=== PATIENT | female | born 1950 | race Two or more races ===

== ENCOUNTER 2017-08-22 04:27 | Inpatient (IN) | payer MEDICARE, MEDICAID ==
[~2017-08-22] VITALS: Ht 162.6 cm; Wt 67.0 kg
[2017-08-22] MEDS ORDERED: methylPREDNISolone SOD SUCC 125 MG/2 ML VL ONE (04:33)
[2017-08-22] MEDS ORDERED: MORPHINE SULFATE 4 MG/ML SYR/VIAL IV ONE ×3 (05:15→12:15)
[2017-08-22] MEDS ORDERED: ONDANSETRON HCL 4 MG/2 ML VIAL IV ONE ×2 (05:15→08:00)
[2017-08-22 05:46] LABS: Basophils # (auto) 0 uL; Basophils % (auto) 0.1 % (0.0-2.0); Eosinophils # (auto) 0 uL; Hematocrit 48.3 % (36.0-46.0); Lymphocytes # (auto) 0.6 uL; Lymphocytes % (auto) 4.2 % (10.0-50.0); Mean Corpuscular Hgb Conc. 33.1 g/dL (32.0-36.0); Mean Corpuscular Volume 87.7 fL (80.0-100.0); Monocytes # (auto) 0.7 uL; Monocytes % (auto) 4.6 % (0.0-12.0); Neutrophils % (auto) 91.1 % (37.0-80.0); Platelet Count (auto) 323 10^3/uL (140-450); Red Blood Cells 5.51 10^6/uL (4.0-5.20); Red Cell Distribution Width 13.7 % (11.8-14.3); White Blood Cell 15.3 10^3/uL (4.4-10.8)
[2017-08-22 06:00] LABS: INR 0.95 (0.9-1.15); Partial Thromboplastin Time 22.9 sec (22.64-33.71); Prothrombin Time 10.4 sec (9.37-12.3)
[2017-08-22 06:20] LABS: Alanine Aminotransferase 15 U/L (13-56); Albumin 4.6 g/dL (3.4-5.0); Alkaline Phosphatase 98 U/L (45-117); Anion Gap 15 (5-15); Aspartate Aminotransferase 20 U/L (15-37); Bilirubin, Total 1.1 mg/dL (0.2-1.0); Blood Urea Nitrogen 8 mg/dL (7-18); Carbon Dioxide 28 mmol/L (21-32); Chloride 91 mmol/L (98-107); GFR African American 92 mL/min; GFR Non-African American 76 mL/min; Glucose 318 mg/dL (74-106); Magnesium 2.4 mg/dL (1.6-2.6); Potassium 3.2 mmol/L (3.5-5.1); Sodium 134 mmol/L (136-145); Total Protein 9.5 g/dL (6.4-8.2)
[2017-08-22] MEDS ORDERED: POTASSIUM CHL 10% (20 MEQ/15ML) 15ml ORAL SOLN PO ONE (07:00)
[2017-08-22 07:45] LABS: Urine Amorphous Crystal FEW /hpf (None Seen); Urine Bacteria NONE SEEN /hpf (None Seen); Urine Blood Negative /uL (Negative); Urine Specific Gravity 1.022 (1.001-1.035); Urine WBC 3 /hpf (0 - 5)
[2017-08-22] MEDS ORDERED: POTASSIUM CHL 20MEQ/100ML 100 ML IV ONE (08:00)
[2017-08-22] MEDS ORDERED: SODIUM CHLORIDE 0.9% 1,000 ML IV ONE (08:00)
[2017-08-22] MEDS ORDERED: MORPHINE SULFATE 10 MG/ML INJ 1ML SDV IV ONE (12:00)
[2017-08-22] MEDS ORDERED: PIPERACILLIN-TAZOB 3.375GM 50 ML IV ONE (12:00)
[2017-08-22] MEDS ORDERED: NITROGLYCERIN 0.4 MG SL TAB SL PRN (13:15)
[2017-08-22] MEDS ORDERED: ACETAMINOPHEN 500 MG TAB PO PRN (13:15)
[2017-08-22] MEDS ORDERED: TEMAZEPAM 15 MG CAP PO PRN (13:15)
[2017-08-22] MEDS ORDERED: DEXTROSE (50%) 50ML SYRG IV PRN ×2 (13:15→16:15)
[2017-08-22] MEDS ORDERED: ALBUTEROL SULF 2.5 MG/0.5ML(0.5%) NEB SOLN NEB PRN (13:15)
[2017-08-22] MEDS ORDERED: MORPHINE SULFATE 4 MG/ML SYR/VIAL IV PRN (13:15)
[2017-08-22] MEDS ORDERED: LORazepam 0.5 MG TAB PO PRN (13:15)
[2017-08-22] MEDS ORDERED: HYDROcodone-ACET 5/325MG TAB PO PRN (13:15)
[2017-08-22] MEDS: SODIUM CHLORIDE 0.9% 1,000 ML IV SCH (13:35)
[2017-08-22] MEDS ORDERED: cefTRIAXone 1GM/10ml IVPUSH 10 ML IV ONE (13:45)
[2017-08-22] MEDS ORDERED: ENOXAPARIN SOD 40 MG/0.4 ML SYRINGE SC ONE (13:45)
[2017-08-22] MEDS ORDERED: AZITHROMYCIN 500MG/ 250ML 250 ML IV ONE (13:45)
[2017-08-22] MEDS: PROMETHAZINE HCL 25 MG/ML 1ML IV PRN ×2 (13:54→20:10)
[2017-08-22 17:00] VITALS: BP 95/58
[2017-08-22] MEDS: InsuLIN REG 1unit/0.01ml Soln (100units/ml) SC SCH ×2 (17:00→23:16)
[2017-08-22] MEDS ORDERED: InsuLIN REG 1unit/0.01ml Soln (100units/ml) SC SCH (17:00)
[2017-08-22] MEDS ORDERED: ACCU-CHEK COMFORT CURVE STRIP VI SCH (17:00)
[2017-08-22] MEDS: ACCU-CHEK COMFORT CURVE STRIP VI SCH ×2 (17:00→22:19)
[2017-08-22] MEDS: ALBUTEROL SULF 2.5 MG/0.5ML(0.5%) NEB SOLN NEB SCH (19:30)
[2017-08-22 22:00] VITALS: BP 90/65
[2017-08-22 23:54] VITALS: BP 90/65
[2017-08-23] MEDS: ALBUTEROL SULF 2.5 MG/0.5ML(0.5%) NEB SOLN NEB SCH ×4 (00:39→17:55)
[2017-08-23] MEDS: SODIUM CHLORIDE 0.9% 1,000 ML IV SCH ×2 (03:40→16:40)
[2017-08-23 05:00] VITALS: BP 99/56
[2017-08-23] MEDS: ACCU-CHEK COMFORT CURVE STRIP VI SCH ×4 (06:26→22:10)
[2017-08-23] MEDS: InsuLIN REG 1unit/0.01ml Soln (100units/ml) SC SCH ×4 (06:26→22:00)
[2017-08-23] MEDS ORDERED: METF-370 PO (06:27)
[2017-08-23 07:20] LABS: Albumin 2.9 g/dL (3.4-5.0); BUN/Creatinine Ratio 32.7; Bilirubin, Total 0.7 mg/dL (0.2-1.0); Calcium 7.6 mg/dL (8.5-10.1); Potassium 3.2 mmol/L (3.5-5.1); Total Protein 6.1 g/dL (6.4-8.2)
[2017-08-23 07:28] LABS: Basophils # (auto) 0 uL; Basophils % (auto) 0.2 % (0.0-2.0); Eosinophils # (auto) 0.1 uL; Eosinophils % (auto) 0.4 % (0.0-7.0); Hematocrit 33.8 % (36.0-46.0); Hemoglobin 11.2 g/dL (12.2-16.2); Lymphocytes # (auto) 2.5 uL; Lymphocytes % (auto) 18.5 % (10.0-50.0); Mean Corpuscular Hemoglobin 29.5 pg (28.0-32.0); Mean Corpuscular Volume 89.5 fL (80.0-100.0); Monocytes # (auto) 1.1 uL; Monocytes % (auto) 8.3 % (0.0-12.0); Neutrophils # (auto) 9.9 uL; Neutrophils % (auto) 72.6 % (37.0-80.0); Platelet Count (auto) 254 10^3/uL (140-450); Red Blood Cells 3.78 10^6/uL (4.0-5.20); Red Cell Distribution Width 13.6 % (11.8-14.3); White Blood Cell 13.6 10^3/uL (4.4-10.8)
[2017-08-23] MEDS: LACTULOSE 20Gm/30ML SOLN PO PRN (08:05)
[2017-08-23] MEDS: cefTRIAXone 1GM/10ml IVPUSH 10 ML IV SCH (08:21)
[2017-08-23] MEDS: MORPHINE SULFATE 4 MG/ML SYR/VIAL IV PRN ×2 (08:22→17:30)
[2017-08-23 09:00] VITALS: BP 86/56
[2017-08-23] MEDS: AZITHROMYCIN 500MG/ 250ML 250 ML IV SCH (09:31)
[2017-08-23] MEDS: ENOXAPARIN SOD 40 MG/0.4 ML SYRINGE SC SCH (09:31)
[2017-08-23] MEDS ORDERED: POTASSIUM CHL 20 Meq TABLET PO ONE (12:00)
[2017-08-23 13:00] VITALS: BP 103/64
[2017-08-23] MEDS ORDERED: POTASSIUM CHL 10% (20 MEQ/15ML) 15ml ORAL SOLN PO ONE (13:00)
[2017-08-23 17:00] VITALS: BP 114/76
[2017-08-23] MEDS ORDERED: OXYCODONE W/ ACETAMINOPHEN 5/325MG TABLET PO PRN (17:30)
[2017-08-23 22:00] VITALS: BP 123/82
[2017-08-24] MEDS: ALBUTEROL SULF 2.5 MG/0.5ML(0.5%) NEB SOLN NEB SCH ×3 (00:10→11:38)
[2017-08-24 05:00] VITALS: BP 114/52
[2017-08-24] MEDS: SODIUM CHLORIDE 0.9% 1,000 ML IV SCH (05:13)
[2017-08-24] MEDS: ACCU-CHEK COMFORT CURVE STRIP VI SCH ×2 (06:15→11:29)
[2017-08-24] MEDS: InsuLIN REG 1unit/0.01ml Soln (100units/ml) SC SCH ×3 (06:29→12:15)
[2017-08-24] MEDS: cefTRIAXone 1GM/10ml IVPUSH 10 ML IV SCH (08:44)
[2017-08-24 09:00] VITALS: BP 99/60
[2017-08-24] MEDS: AZITHROMYCIN 500MG/ 250ML 250 ML IV SCH (09:22)
[2017-08-24] MEDS: LACTULOSE 20Gm/30ML SOLN PO PRN (09:22)
[2017-08-24] MEDS: ENOXAPARIN SOD 40 MG/0.4 ML SYRINGE SC SCH (09:22)
[2017-08-24 12:45] VITALS: BP 99/60
[2017-08-24 13:00] VITALS: BP 129/72
== END 2017-08-24 16:30 | disposition home or self-care (01) | DRG 871 ==
LOC: EDBD 04:27 → ER 04:31 → TELE 04:32 → TELE-WESTW 15:25
PROVIDERS: ADMIT Internal Medicine; ATTEND Family Medicine
DX: A41.9 Sepsis, unspecified organism (principal); J18.9 Pneumonia, unspecified organism; E46 Unspecified protein-calorie malnutrition; C78.00 Secondary malignant neoplasm of unspecified lung; J44.0 Chronic obstructive pulmonary disease with (acute) lower respiratory infection; E11.65 Type 2 diabetes mellitus with hyperglycemia; E87.6 Hypokalemia; I70.0 Atherosclerosis of aorta; K57.30 Diverticulosis of large intestine without perforation or abscess without bleeding; K59.00 Constipation, unspecified; Z83.3 Family history of diabetes mellitus; Z85.3 Personal history of malignant neoplasm of breast; Z68.25 Body mass index [BMI] 25.0-25.9, adult
CPT/HCPCS: 36415; 71045; 71250; 74176; 80053; 81001; 82962; 83036; 83735; 84484; 85025; 85610; 85730; 87040; 87077; 87081; 87186; 87205; 87804; 93005; 94640; 96361; 96365; 96375; 96376; J1815; J2405; J2543; J3480

== ENCOUNTER 2018-03-26 13:58 | Inpatient (IN) | payer MEDICARE, MEDICAID ==
[~2018-03-26] VITALS: Ht 162.6 cm; Wt 48.6 kg
[~2018-03-26 13:58] MED LIST: METF-370 PO
[2018-03-26 14:50] LABS: Basophils # (auto) 0.1 uL; Basophils % (auto) 0.5 % (0.0-2.0); Eosinophils # (auto) 0 uL; Hemoglobin 13.7 g/dL (12.2-16.2); Lymphocytes # (auto) 0.9 uL; Lymphocytes % (auto) 7.6 % (10.0-50.0); Mean Corpuscular Hemoglobin 28.7 pg (28.0-32.0); Mean Corpuscular Hgb Conc. 33.3 g/dL (32.0-36.0); Monocytes # (auto) 0.3 uL; Monocytes % (auto) 2.2 % (0.0-12.0); Neutrophils # (auto) 10.2 uL; Neutrophils % (auto) 89.7 % (37.0-80.0); Platelet Count (auto) 369 10^3/uL (140-450); Red Blood Cells 4.76 10^6/uL (4.0-5.20); Red Cell Distribution Width 13.3 % (11.8-14.3); White Blood Cell 11.4 10^3/uL (4.4-10.8)
[2018-03-26 15:11] LABS: Albumin 3.9 g/dL (3.4-5.0); BUN/Creatinine Ratio 7.5; Calcium 8.4 mg/dL (8.5-10.1); Potassium 3.4 mmol/L (3.5-5.1)
[2018-03-26 15:14] LABS: Bilirubin, Total 0.5 mg/dL (0.2-1.0); Total Protein 8.5 g/dL (6.4-8.2)
[2018-03-26 15:18] LABS: INR 0.94 (0.9-1.15); Partial Thromboplastin Time 24.5 sec (23.78-33.04); Prothrombin Time 10.1 sec (9.27-12.13)
[2018-03-26] MEDS ORDERED: NITROGLYCERIN 0.4 MG SL TAB SL PRN (16:15)
[2018-03-26] MEDS ORDERED: ACETAMINOPHEN 500 MG TAB PO PRN (16:15)
[2018-03-26] MEDS ORDERED: LORazepam 0.5 MG TAB PO PRN (16:15)
[2018-03-26] MEDS ORDERED: PANTOPRAZOLE 40 MG/10 ML VIAL IV ONE (16:15)
[2018-03-26] MEDS ORDERED: TEMAZEPAM 15 MG CAP PO PRN (16:15)
[2018-03-26] MEDS ORDERED: MORPHINE SULFATE 4 MG/ML SYR/VIAL IV ONE (16:15)
[2018-03-26] MEDS ORDERED: ONDANSETRON HCL 4 MG/2 ML VIAL IV ONE (16:15)
[2018-03-26] MEDS ORDERED: MORPHINE SULFATE 4 MG/ML SYR/VIAL IV PRN (16:15)
[2018-03-26] MEDS ORDERED: DEXTROSE (50%) 50ML SYRG IV PRN (16:15)
[2018-03-26] MEDS ORDERED: cefTRIAXone 1GM/50ML D5W 50 ML IV ONE (16:15)
[2018-03-26] MEDS ORDERED: HYDROmorphone HCL 2 MG/ML VL IV ONE (16:45)
[2018-03-26 16:49] LABS: Amylase 65 U/L (25-115); Lipase 120 U/L (73-393)
[2018-03-26] MEDS: SOD CHL 0.9%/ KCL 20MEQ 1,000 ML IV SCH (17:10)
[2018-03-26] MEDS: InsuLIN REG 1unit/0.01ml Soln (100units/ml) SC SCH ×2 (17:31→21:32)
[2018-03-26] MEDS: ACCU-CHEK COMFORT CURVE STRIP VI SCH ×2 (17:32→21:25)
[2018-03-26] MEDS: ONDANSETRON HCL 4 MG/2 ML VIAL IV PRN (19:48)
[2018-03-26] MEDS: MORPHINE SULFATE 4 MG/ML SYR/VIAL IV PRN (19:48)
[2018-03-26 20:15] VITALS: BP 164/93
[2018-03-26] MEDS: HYDROcodone-ACET 5/325MG TAB PO PRN (21:08)
[2018-03-26 22:00] VITALS: BP 164/93
[2018-03-27] MEDS: ONDANSETRON HCL 4 MG/2 ML VIAL IV PRN ×3 (00:39→17:51)
[2018-03-27] MEDS: MORPHINE SULFATE 4 MG/ML SYR/VIAL IV PRN ×3 (00:40→17:51)
[2018-03-27] MEDS: SOD CHL 0.9%/ KCL 20MEQ 1,000 ML IV SCH ×2 (02:15→12:15)
[2018-03-27 05:00] VITALS: BP 162/90
[2018-03-27] MEDS: ACCU-CHEK COMFORT CURVE STRIP VI SCH ×4 (06:40→22:46)
[2018-03-27] MEDS: InsuLIN REG 1unit/0.01ml Soln (100units/ml) SC SCH ×4 (06:47→22:56)
[2018-03-27 06:50] LABS: Basophils # (auto) 0 uL; Basophils % (auto) 0.1 % (0.0-2.0); Eosinophils # (auto) 0 uL; Hematocrit 40.7 % (36.0-46.0); Hemoglobin 13.7 g/dL (12.2-16.2); Lymphocytes # (auto) 1.5 uL; Mean Corpuscular Hemoglobin 29.1 pg (28.0-32.0); Mean Corpuscular Hgb Conc. 33.7 g/dL (32.0-36.0); Mean Corpuscular Volume 86.3 fL (80.0-100.0); Monocytes # (auto) 1.5 uL; Monocytes % (auto) 8.9 % (0.0-12.0); Neutrophils # (auto) 13.5 uL; Platelet Count (auto) 369 10^3/uL (140-450); Red Blood Cells 4.72 10^6/uL (4.0-5.20); Red Cell Distribution Width 13.4 % (11.8-14.3); White Blood Cell 16.4 10^3/uL (4.4-10.8)
[2018-03-27 07:06] LABS: Albumin 3.5 g/dL (3.4-5.0); Calcium 8.6 mg/dL (8.5-10.1); Potassium 3.7 mmol/L (3.5-5.1)
[2018-03-27 07:09] LABS: BUN/Creatinine Ratio 12.5; Bilirubin, Total 0.7 mg/dL (0.2-1.0); Total Protein 8.3 g/dL (6.4-8.2)
[2018-03-27 08:00] VITALS: BP 149/87
[2018-03-27 08:34] VITALS: BP 149/87
[2018-03-27] MEDS: cefTRIAXone 1GM/50ML D5W 50 ML IV SCH (08:42)
[2018-03-27] MEDS: HYDROcodone-ACET 5/325MG TAB PO PRN ×2 (08:43→20:24)
[2018-03-27] MEDS ORDERED: PANTOPRAZOLE 40 MG/10 ML VIAL IV SCH (10:00)
[2018-03-27] MEDS ORDERED: LACTULOSE 20Gm/30ML SOLN PO PRN (11:00)
[2018-03-27 12:29] VITALS: BP 108/68
[2018-03-27] MEDS: oxyCODONE ER 20 MG TAB PO SCH ×2 (13:27→22:00)
[2018-03-27] MEDS: SUCRALFATE 1 GM/10 ML ORAL SUSP PO SCH ×3 (13:27→22:46)
[2018-03-27] MEDS: SODIUM CHLORIDE 0.9% 1,000 ML IV SCH (18:10)
[2018-03-27 22:00] VITALS: BP 83/70
[2018-03-27] MEDS: PANTOPRAZOLE 40 MG/10 ML VIAL IV SCH (22:45)
[2018-03-28] MEDS: SODIUM CHLORIDE 0.9% 1,000 ML IV SCH ×2 (00:15→10:15)
[2018-03-28] MEDS: HYDROcodone-ACET 5/325MG TAB PO PRN (02:42)
[2018-03-28 05:00] VITALS: BP 82/43
[2018-03-28] MEDS: MORPHINE SULFATE 4 MG/ML SYR/VIAL IV PRN (06:08)
[2018-03-28] MEDS: ACCU-CHEK COMFORT CURVE STRIP VI SCH ×2 (06:13→11:30)
[2018-03-28] MEDS: SUCRALFATE 1 GM/10 ML ORAL SUSP PO SCH ×2 (06:23→11:30)
[2018-03-28] MEDS: InsuLIN REG 1unit/0.01ml Soln (100units/ml) SC SCH ×2 (06:23→11:30)
[2018-03-28 06:33] LABS: Basophils # (auto) 0 uL; Basophils % (auto) 0.2 % (0.0-2.0); Eosinophils # (auto) 0.1 uL; Eosinophils % (auto) 0.8 % (0.0-7.0); Hematocrit 36.6 % (36.0-46.0); Hemoglobin 12.3 g/dL (12.2-16.2); Lymphocytes # (auto) 2.1 uL; Mean Corpuscular Hemoglobin 29.1 pg (28.0-32.0); Mean Corpuscular Hgb Conc. 33.5 g/dL (32.0-36.0); Mean Corpuscular Volume 86.7 fL (80.0-100.0); Monocytes # (auto) 0.9 uL; Monocytes % (auto) 10.6 % (0.0-12.0); Neutrophils # (auto) 5.6 uL; Neutrophils % (auto) 64.4 % (37.0-80.0); Platelet Count (auto) 294 10^3/uL (140-450); Red Blood Cells 4.22 10^6/uL (4.0-5.20); Red Cell Distribution Width 13.3 % (11.8-14.3); White Blood Cell 8.7 10^3/uL (4.4-10.8)
[2018-03-28 06:59] LABS: Potassium 3.8 mmol/L (3.5-5.1)
[2018-03-28 07:10] LABS: BUN/Creatinine Ratio 17.9; Bilirubin, Total 0.4 mg/dL (0.2-1.0); Calcium 9.1 mg/dL (8.5-10.1)
[2018-03-28 08:00] VITALS: BP 93/50
[2018-03-28] MEDS: cefTRIAXone 1GM/50ML D5W 50 ML IV SCH (10:38)
[2018-03-28] MEDS: PANTOPRAZOLE 40 MG/10 ML VIAL IV SCH (10:38)
[2018-03-28] MEDS: oxyCODONE ER 20 MG TAB PO SCH (10:39)
[2018-03-28 15:23] VITALS: BP 109/68
== END 2018-03-28 16:50 | disposition home health service (06) | DRG 872 ==
LOC: EDBD 13:58 → ER 13:58 → TELE 13:59 → TELE-WESTW 20:21
PROVIDERS: ADMIT Internal Medicine; ATTEND Family Medicine
DX: A41.9 Sepsis, unspecified organism (principal); C78.00 Secondary malignant neoplasm of unspecified lung; C78.7 Secondary malignant neoplasm of liver and intrahepatic bile duct; C79.51 Secondary malignant neoplasm of bone; K80.20 Calculus of gallbladder without cholecystitis without obstruction; E87.6 Hypokalemia; C50.911 Malignant neoplasm of unspecified site of right female breast; E11.9 Type 2 diabetes mellitus without complications; E86.0 Dehydration; I10 Essential (primary) hypertension; I88.9 Nonspecific lymphadenitis, unspecified; J43.9 Emphysema, unspecified; K57.30 Diverticulosis of large intestine without perforation or abscess without bleeding; K59.00 Constipation, unspecified; Z83.3 Family history of diabetes mellitus; F12.90 Cannabis use, unspecified, uncomplicated
CPT/HCPCS: 36415; 71250; 74176; 78226; 80053; 82150; 82962; 83036; 83690; 85025; 85610; 85730; 87040; 93005; 96374; 96375; C9113; J0696; J1815; J2405